=== PATIENT | female | born 1980 | race Caucasian/White ===

== ENCOUNTER 2018-03-20 08:15 | Inpatient (IN) | payer OTHER ==
[~2018-03-20] VITALS: Ht 152.4 cm; Wt 84.4 kg
[2018-03-20] MEDS ORDERED: GABAPENTIN800 MG PO (10:10)
[2018-03-20] MEDS ORDERED: COZAAR50 MG PO (10:10)
[2018-03-30] MEDS ORDERED: PERCOCET 5-3251 EACH PO ×2 (07:24→07:27)
[2018-03-30] MEDS ORDERED: CIPRO500 MG PO (07:27)
== END 2018-03-30 09:50 | disposition home or self-care (01) | DRG 743 ==
LOC: OB/GYN 03-28 06:03 → O/R 03-28 06:03 → OB/GYN 03-28 07:00
PROVIDERS: Specialist
PROC: 0UT70ZZ Resection of Bilateral Fallopian Tubes, Open Approach (ICD-10-PCS; 2018-03-28)
PROC: 0UB90ZZ Excision of Uterus, Open Approach (ICD-10-PCS; 2018-03-28)
PROC: 0UT90ZZ Resection of Uterus, Open Approach (ICD-10-PCS; principal; 2018-03-28 07:00)
DX: D25.1 Intramural leiomyoma of uterus (principal); N72 Inflammatory disease of cervix uteri; N80.0 Endometriosis of uterus; J45.909 Unspecified asthma, uncomplicated

== ENCOUNTER 2020-04-17 13:15 | Emergency (ER) | payer OTHER ==
[~2020-04-17] VITALS: Ht 160 cm; Wt 79.4 kg
[~2020-04-17 13:15] MED LIST: CIPRO500 MG PO; COZAAR50 MG PO; GABAPENTIN800 MG PO; PERCOCET 5-3251 EACH PO
[2020-04-17] MEDS ORDERED: KETO10TA2 PO (16:20)
== END 2020-04-17 16:48 | disposition home or self-care (01) ==
LOC: ER 13:15
DX: N83.292 Other ovarian cyst, left side (principal); R10.2 Pelvic and perineal pain